=== PATIENT | male | born 2000 | race Caucasian/White ===

== ENCOUNTER 2022-07-31 08:51 | Emergency (ER) | payer MEDICAID, OTHER ==
[~2022-07-31] VITALS: Ht 170.2 cm; Wt 79.5 kg
[2022-07-31] MEDS ORDERED: PERTUSS(ACELL),DIPH,TET VAC/PF 0.5 ML SYRINGE IM. ONE (10:45)
[2022-07-31] MEDS ORDERED: LIDOCAINE 1% 20 ML VIAL SQ ONE (10:45)
[2022-07-31] MEDS ORDERED: NEOMYCIN/BACITRACIN/POLYMYXIN B OINTMENT PACKET TP ONE (12:45)
[2022-07-31 12:52] VITALS: BP 127/89
[2022-07-31] MEDS ORDERED: CEPH-558 PO (13:22)
[2022-07-31] MEDS ORDERED: BACI28OI29 TP (13:23)
[2022-07-31] MEDS ORDERED: IBUP-2070 PO (13:23)
== END 2022-07-31 13:43 | disposition home or self-care (01) ==
LOC: EMS 08:53
DX: S81.011A Laceration without foreign body, right knee, initial encounter (principal); W31.89XA Contact with other specified machinery, initial encounter; Y93.89 Activity, other specified; Y92.89 Other specified places as the place of occurrence of the external cause; Y99.0 Civilian activity done for income or pay
CPT/HCPCS: 99283; 73562; 90715; 90471; 12002; J3490

== ENCOUNTER 2022-08-10 11:12 | Emergency (ER) | payer SELFPAY ==
[~2022-08-10] VITALS: Ht 154.9 cm; Wt 70.0 kg
[~2022-08-10 11:12] MED LIST: BACI28OI29 TP; CEPH-558 PO; IBUP-2070 PO
[2022-08-10 12:25] VITALS: BP 103/69
== END 2022-08-10 12:41 | disposition home or self-care (01) ==
LOC: EMS 11:15
DX: S81.011D Laceration without foreign body, right knee, subsequent encounter (principal); Z48.02 Encounter for removal of sutures; X58.XXXD Exposure to other specified factors, subsequent encounter
CPT/HCPCS: 99281; Z7502